=== PATIENT | female | born 1935 | race Caucasian/White ===

== ENCOUNTER 2018-09-14 15:50 | Emergency (ER) | payer MEDICARE, OTHER ==
--- NOTE | 2018-09-14 16:26 | EDM.PDOC ---
ED HPI GENERAL MEDICAL PROBLEM - General Chief Complaint: Neurological Problem Stated Complaint: Altered mental status Time Seen by Provider: 09/14/18 16:09 Source of Information: Reports: Family, Assisted Records, Provider History Limitations: Reports: Altered Mental Status - History of Present Illness INITIAL COMMENTS - FREE TEXT/NARRATIVE: Patient is an 83-year-old female who presents to the emergency department via transport from [facility] with a complaint of altered mental status and syncopal episode. Per provider and nursing staff, patient was in a seated position, and had a short episode of a few minutes where she did not respond to commands. Following episode patient seemed more confused than usual. Decision was made by [facility] provider to have patient brought to emergency department for evaluation. Upon presentation, patient was with her daughter, and daughter confirms that the patient is not acting appropriate for her. Patient is alert, awake, however, she is confused and does not respond to questions. Onset: Today Duration: Hour(s): Severity: Mild Improves with: Reports: None Worsens with: Reports: None Associated Symptoms: Reports: Syncope, Weakness. Denies: Chest Pain, Fever/ Chills, Nausea/Vomiting, Seizure, Shortness of Breath - Related Data Allergies Allergy/AdvReac Type Severity Reaction Status Date / Time codeine Allergy Cannot Verified 09/14/18 17:01 Remember Home Meds: Home Meds Acetaminophen [Tylenol] 650 mg PO TID 09/01/15 [History] Aspirin [Halfprin] 81 mg PO DAILY 09/01/15 [History] Bisacodyl [Dulcolax] 5 mg PO DAILY PRN 09/01/15 [History] Cyanocobalamin (Vitamin B-12) [Cyanocobalamin Injection] 1,000 mcg IM ASDIRECTED 09/01/15 [History] Irbesartan 300 mg PO DAILY 09/01/15 [History] Levothyroxine Sodium [Synthroid] 75 mcg PO DAILY 09/01/15 [History] Polyethylene Glycol 3350 [Miralax] 17 gm PO DAILY 09/01/15 [History] Sennosides/Docusate Sodium [Senna Plus Tablet] 2 tab PO BID 09/01/15 [History] amLODIPine [Norvasc] 5 mg PO DAILY 09/01/15 [History] Acetaminophen [Tylenol Arthritis] 650 mg PO BEDTIME PRN 02/11/18 [History] Lidocaine 5% [Lidoderm 5%] 1 patch TOP Q24H 02/11/18 [History] Multivitamin with Minerals [Multivitamins with Minerals] 1 tab PO DAILY [History] Naproxen Sodium [Aleve] 220 mg PO BID 02/11/18 [History] QUEtiapine [SEROquel] 300 mg PO DAILY 02/11/18 [History] levETIRAcetam [Keppra] 1,000 mg PO BID 02/11/18 [History] Calcium Carbonate/Vitamin D3 [Calcium 600 + Vit D Tablet] 1 tab PO BID 09/14/18 [History] Cetirizine HCl [Zyrtec] 10 mg PO DAILY 09/14/18 [History] Omeprazole 20 mg PO DAILY 09/14/18 [History] QUEtiapine [SEROquel] 75 mg PO DAILY@1200 09/14/18 [History] Past Medical History HEENT History: Reports: Impaired Vision, Macular Degeneration Cardiovascular History: Reports: CAD, High Cholesterol, Hypertension Other Cardiovascular History: ARTHEROSCLEROTIC HEART DISEASE Gastrointestinal History: Reports: Chronic Constipation Genitourinary History: Reports: Urinary Incontinence Other Genitourinary History: overactive bladder 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: Musculoskeletal History: Reports: Back Pain, Chronic Other Musculoskeletal History: SPONDYLOSIS Neurological History: Reports: Alzheimers Disease Psychiatric History: Reports: Anxiety Endocrine/Metabolic History: Reports: Hypothyroidism, Osteoporosis, Vitamin D Deficiency - Past Surgical History HEENT Surgical History: Reports: Cataract Surgery Cardiovascular Surgical History: Reports: None Endocrine Surgical History: Reports: None Neurological Surgical History: Reports: None Social & Family History - Caffeine Use Caffeine Use: Reports: Coffee - Living Situation & Occupation Living situation: Reports: Extended Care Facility ED ROS GENERAL - Review of Systems Review Of Systems: ROS reveals no pertinent complaints other than HPI. Constitutional: Reports: No Symptoms HEENT: Reports: No Symptoms Respiratory: Reports: No Symptoms Cardiovascular: Reports: No Symptoms Endocrine: Reports: No Symptoms GI/Abdominal: Reports: No Symptoms : Reports: No Symptoms Musculoskeletal: Reports: No Symptoms Skin: Reports: No Symptoms Neurological: Reports: Confusion, Syncope Psychiatric: Reports: No Symptoms Hematologic/Lymphatic: Reports: No Symptoms Immunologic: Reports: No Symptoms - Physical Exam Exam: See Below Exam Limited By: No Limitations General Appearance: WD/WN, No Apparent Distress, Lethargic Eye Exam: Bilateral Eye: Abnormal Pupil (Slow response) Nose: Normal Inspection, Normal Mucosa, No Blood Throat/Mouth: Normal Inspection, Normal Oropharynx, No Airway Compromise Head Exam: Atraumatic, Normocephalic Respiratory/Chest: No Respiratory Distress, Lungs Clear, Normal Breath Sounds, No Accessory Muscle Use, Chest Non-Tender Cardiovascular: No Murmur, No Rub, Extra Beats GI/Abdominal: Normal Bowel Sounds, Soft, Non-Tender, No Organomegaly, No Distention, No Abnormal Bruit, No Mass Neuro Exam (Abbreviated): Confused, Slow to Respond, Other (8/15 GCS) Extremities: No Pedal Edema, Normal Capillary Refill Psychiatric: Flat Affect Skin Exam: Warm, Dry, Intact, Normal Color, No Rash EKG INTERPRETATION EKG Date: 09/14/18 Time: 16:25 Rhythm: Other (Sinus rhythm with PVCs) Rate (Beats/Min): 79 Adams: Normal P-Wave: Present QRS: Normal ST-T: Normal QT: Normal Comparison: Change From Previous EKG (Previous EKG on 09/01/2015 showed normal sinus rhythm at 91 bpm.) Course - Vital Signs Last Recorded V/S: Last Vital Signs Temp 97.8 F 09/14/18 15:50 Pulse 88 09/14/18 15:50 Resp 20 09/14/18 15:50 BP 179/86 H 09/14/18 15:50 Pulse Ox 93 L 09/14/18 15:50 - Orders/Labs/Meds Orders: Active Orders 24 hr Category Date Time Status EKG Documentation Completion [RC] ASDIRECTED Care 09/14/18 16:16 Ordered LEVETIRACETAM, S [REF] Stat Lab 09/14/18 17:26 Ordered UA W/JULIO CÉSAR RFLX IF INDICATED [URIN] Stat Lab 09/14/18 17:09 Ordered EKG 12 Lead [EK] Routine Ther 09/14/18 16:14 Ordered Labs: Laboratory Tests 09/14/18 09/14/18 09/14/18 Range/Units 16:30 16:30 16:30 WBC 7.26 (5.00-10.00) 10^3/uL RBC 3.86 (3.80-5.50) 10^6/uL Hgb 12.2 (12.0-16.0) g/dL Hct 36.3 L (37.0-47.0) % MCV 94.0 H (82.0-92.0) fL MCH 31.6 H (27.0-31.0) pg MCHC 33.6 (32.0-36.0) g/dL RDW 12.7 (11.5-14.5) % Plt Count 280 (150-400) 10^3/uL MPV 9.3 (7.4-10.4) fL Immature Gran % (Auto) 0.1 (0.0-5.0) % Neut % (Auto) 48.0 L (50.0-70.0) % Lymph % (Auto) 38.4 (20.0-40.0) % [place] % (Auto) 10.9 H (2.0-8.0) % Eos % (Auto) 2.3 (1.0-3.0) % Baso % (Auto) 0.3 (0.0-1.0) % Immature Gran # (Auto) 0.01 (0.00-0.50) 10^3/uL Neut # (Auto) 3.48 (2.50-7.00) 10^3/uL Lymph # (Auto) 2.79 (1.00-4.00) 10^3/uL [place] # (Auto) 0.79 (0.10-0.80) 10^3/uL Eos # (Auto) 0.17 (0.10-0.30) 10^3/uL Baso # (Auto) 0.02 (0.00-0.10) 10^3/uL PT 10.4 (8.9-11.4) SEC INR 1.0 (0.9-1.1) APTT 24.6 (23.1-31.9) SEC Sodium 143 (136-145) mmol/L Potassium 3.4 (3.3-5.3) mmol/L Chloride 105 (98-115) mmol/L Carbon Dioxide 29.6 D (21.0-32.0) mmol/L Anion Gap 11.8 (5-15) mmol/L BUN 20 (6-25) mg/dL Creatinine 0.84 (0.51-1.17) mg/dL Est Cr Clr Drug Dosing 42.84 mL/min Estimated GFR (MDRD) > 60 mL/min Glucose 98 (75 - 99) mg/dL Calcium 10.1 D (8.7-10.3) mg/dL Magnesium 1.8 (1.8-2.4) mg/dL Total Bilirubin 0.4 (0.2-1.0) mg/dL AST 25 (15-37) U/L ALT 26 (12-78) U/L Alkaline Phosphatase 100 (46-116) IU/L Troponin I < 0.04 (0.00-0.070) ng/mL Total Protein 7.2 (6.4-8.2) g/dL Albumin 3.38 (3.00-4.80) g/dL - Radiology Interpretation Free Text/Narrative:: Chest x-ray shows no acute cardiopulmonary process. CT head without contrast shows no acute intracranial process - Re-Assessments/Exams Free Text/Narrative Re-Assessment/Exam: 09/14/18 17:32 Patient afebrile, vital signs stable, daughter at bedside, patient no distress. Discussed case with Meryl betancourt and decision was made by [facility] providers to have patient return to [facility] and they will follow up with her there. Departure - Departure Time of Disposition: 17:34 Disposition: DC/Tfer to Medicaid Nur Fac 63 Condition: Good Clinical Impression: Dementia Qualifiers: Dementia type: Alzheimer's disease Alzheimer's disease onset: unspecified onset Dementia behavioral disturbance: without behavioral disturbance Qualified Code(s): G30.9 - Alzheimer's disease, unspecified; F02.80 - Dementia in other diseases classified elsewhere without behavioral disturbance - Discharge Information Instructions: Dementia, [id number] Referrals: Yaz Call PA-C [Primary Care Provider] - Forms: ED Department Discharge Additional Instructions: Follow-up with PCP in next 2-3 days. Return to emergency department if symptoms continue or worsen. - My Orders Last 24 Hours: My Active Orders 09/14/18 16:14 EKG 12 Lead [EK] Routine 09/14/18 16:16 EKG Documentation Completion [RC] ASDIRECTED 09/14/18 17:09 UA W/JULIO CÉSAR RFLX IF INDICATED [URIN] Stat 09/14/18 17:26 LEVETIRACETAM, S [REF] Stat - Assessment/Plan Last 24 Hours: My Active Orders 09/14/18 16:14 EKG 12 Lead [EK] Routine 09/14/18 16:16 EKG Documentation Completion [RC] ASDIRECTED 09/14/18 17:09 UA W/JULIO CÉSAR RFLX IF INDICATED [URIN] Stat 09/14/18 17:26 LEVETIRACETAM, S [REF] Stat Assessment:: Confusion Plan: Return to nursing facility and Follow-up with PCP
[2018-09-14 16:31] VITALS: BP 179/86
[2018-09-14 17:07] LABS: ANION GAP 11.8 mmol/L (5-15); CHLORIDE,CL 105 mmol/L (98-115); SODIUM,NA 143 mmol/L (136-145)
--- NOTE | 2018-09-14 17:10 | CT ---
[id number] CT/CT Head WO IV EXAM: CT Head WO IV CLINICAL DATA: CHANGE IN MENTAL STATUS COMPARISON: CORRELATION IS MADE WITH THE EXAM OF SEPTEMBER 01, 2015. FINDINGS: There is no mass or mass effect. There is no hemorrhage or hydrocephalus. There are no extra-axial fluid collections. There are no sites of abnormal attenuation. IMPRESSION: NO PLAIN CT EVIDENCE OF ACUTE INTRACRANIAL PROCESS. Gonzalez Johnson MD 09/14/18 [id number] Thank you for allowing us to participate in the care of your patient.
--- NOTE | 2018-09-14 17:11 | CR ---
[id number] RAD/RAD Chest PA or AP 1V EXAM: SINGLE VIEW CHEST. INDICATION: CHANGE IN MENTAL STATUS COMPARISON: CORRELATION IS MADE WITH THE EXAM OF SEPTEMBER 01, 2015. FINDINGS: The lungs are clear. The cardiomediastinal contour is stable. IMPRESSION: NO PNEUMONIA OR EDEMA. Gonzalez Johnson MD 09/14/18 [id number] Thank you for allowing us to participate in the care of your patient.
== END 2018-09-14 17:55 ==
LOC: KA.ED 15:50
DX: G30.9 Alzheimer's disease, unspecified (principal); F02.80 Dementia in other diseases classified elsewhere, unspecified severity, without behavioral disturbance, psychotic disturbance, mood disturbance, and anxiety; E78.00 Pure hypercholesterolemia, unspecified; I10 Essential (primary) hypertension; I25.10 Atherosclerotic heart disease of native coronary artery without angina pectoris; F41.9 Anxiety disorder, unspecified; E03.9 Hypothyroidism, unspecified; Z88.5 Allergy status to narcotic agent; Z79.82 Long term (current) use of aspirin; Z79.899 Other long term (current) drug therapy
CPT/HCPCS: 36415; 70450; 71045; 80053; 80177; 83735; 84484; 85025; 85610; 85730; 93005; 99285-25